=== PATIENT | male | born 1960 | race Caucasian/White ===

== ENCOUNTER 2017-01-19 19:27 | Emergency (ER) | payer BC ==
[~2017-01-19] VITALS: Ht 177.8 cm; Wt 96.0 kg
[2017-01-19] MEDS ORDERED: FLUCONAZOLE100 MG PO (20:09)
[2017-01-19] MEDS ORDERED: BREO ELLIPTA I1 EACH IH (20:09)
[2017-01-19] MEDS ORDERED: ZOLPIDEM TART12.5 MG PO (20:09)
[2017-01-19] MEDS ORDERED: OXCARBAZEPINE600 MG PO (20:10)
[2017-01-19] MEDS ORDERED: DECADRON4 MG PO (20:10)
[2017-01-19] MEDS ORDERED: LEVETIRACETAM500 MG PO (20:10)
[2017-01-19] MEDS ORDERED: SERTRALINE HCL100 MG PO (20:10)
[2017-01-19] MEDS ORDERED: PROAIR HFA8.5 GM IH (20:11)
[2017-01-19 20:14] LABS: HEMATOCRIT 40.6 % (38.0-50.0); MCH 31.7 PG (29.0-34.0); MCHC 34.5 G/DL (30.0-36.0); MCV 92.1 FL (86-99); MEAN PLAT.VOLUME 8.5 uM^3 (9.0-12.4); PLATELET COUNT 202 K/uL (156-360); RBC DIS.WIDTH-CV 13.7 % (11.8-14.6); RBC DIS.WIDTH-SD 45.6 % (39-53); RED BLOOD COUNT 4.41 M/uL (4.00-5.50); WHITE BLOOD COUNT 12.1 K/uL (4.1-10.2)
[2017-01-19 20:24] LABS: CHLORIDE 97 mEq/L (99-109); POTASSIUM 4.6 mEq/L (3.7-5.4); SODIUM 132 mEq/L (136-147)
[2017-01-19 20:26] LABS: GLUCOSE 124 mg/dL (70-99)
[2017-01-19 20:28] LABS: ANION GAP 12 MEQ/L (2-14)
[2017-01-19 20:30] LABS: GFR ESTIMATE (CALCULATED) > 59 mL/min/
[2017-01-19 20:31] LABS: UREA NITROGEN (BUN) 17 mg/dL (9-23)
[2017-01-19 20:37] LABS: TROP-I INTERPRETATION NEGATIVE; TROPONIN-I < 0.01 ng/mL (0.0-0.30)
[2017-01-19 21:17] VITALS: BP 135/99
== END 2017-01-19 21:27 | disposition home or self-care (01) ==
LOC: EME → EDBD 19:27 → EME 19:27
PROVIDERS: Emergency Medicine
DX: R42 Dizziness and giddiness (principal); T48.6X5A Adverse effect of antiasthmatics, initial encounter; K21.9 Gastro-esophageal reflux disease without esophagitis; R56.9 Unspecified convulsions
CPT/HCPCS: 71010; 80048; 84484; 85027; 93005; 99281; 99285; J7030

== ENCOUNTER 2017-01-25 00:02 | Emergency (ER) | payer BC ==
[~2017-01-25] VITALS: Ht 177.8 cm; Wt 85.2 kg
[~2017-01-25 00:02] MED LIST: BREO ELLIPTA I1 EACH IH; DECADRON4 MG PO; FLUCONAZOLE100 MG PO; LEVETIRACETAM500 MG PO; OXCARBAZEPINE600 MG PO; PROAIR HFA8.5 GM IH; SERTRALINE HCL100 MG PO; ZOLPIDEM TART12.5 MG PO
[2017-01-25 01:24] LABS: HEMATOCRIT 42.3 % (38.0-50.0); MCHC 34.5 G/DL (30.0-36.0); MCV 92.8 FL (86-99); PLATELET COUNT 237 K/uL (156-360); RBC DIS.WIDTH-CV 14.1 % (11.8-14.6); RBC DIS.WIDTH-SD 47.5 % (39-53); RED BLOOD COUNT 4.56 M/uL (4.00-5.50); WHITE BLOOD COUNT 12.7 K/uL (4.1-10.2)
[2017-01-25 01:29] LABS: ADD MIUA? NO; BILIRUBIN NEGATIVE; BLOOD NEGATIVE; COLOR YELLOW ((YELLOW)); GLUCOSE (STRIP) NEGATIVE; KETONES NEGATIVE; LEUKOCYTES NEGATIVE; NITRITE NEGATIVE; PROTEIN (STRIP) NEGATIVE; UCUL ADDED? NO; UROBILINOGEN 0.2 MG/DL (0.2-1.0)
[2017-01-25 01:35] LABS: CHLORIDE 99 mEq/L (99-109); POTASSIUM 4.2 mEq/L (3.7-5.4); SODIUM 133 mEq/L (136-147)
[2017-01-25 01:37] LABS: AMPHETAMINE NEGATIVE (500 ng/mL); COCAINE NEGATIVE (150 ng/mL); GLUCOSE 115 mg/dL (70-99); METHAMPHETAMINE NEGATIVE (500 ng/mL); OPIATES (MORPHINE) NEGATIVE (100 ng/mL); PHENCYCLIDINE NEGATIVE (25 ng/mL); THC CANNABINOIDS NEGATIVE (50 ng/mL)
[2017-01-25 01:38] LABS: ADD MEDTOX COMMENT Y; ANION GAP 11 MEQ/L (2-14); BARBITURATES PRESUMPTIVE POSITIVE (200 ng/mL); BENZODIAZEPINES PRESUMPTIVE POSITIVE (150 ng/mL); INTERNAL CONTROLS VALID? YES; METHADONE NEGATIVE (200 ng/mL); OXYCODONE NEGATIVE (100 ng/mL); PROPOXYPHENE NEGATIVE (300 ng/mL); TRICYCLIC ANTIDEPRESSANTS NEGATIVE (300 ng/mL)
[2017-01-25 01:40] LABS: SERUM ETHYL ALCOHOL 338 mg/dL
[2017-01-25 01:41] LABS: GFR ESTIMATE (CALCULATED) > 59 mL/min/
[2017-01-25 01:43] LABS: UREA NITROGEN (BUN) 11 mg/dL (9-23)
[2017-01-25 01:44] LABS: SALICYLATE < 5.0 MG/DL (15-30)
[2017-01-25 04:02] LABS: BENZODIAZEPINES, URINE SCREEN POSITIVE (200 ng/mL)
[2017-01-25 04:34] VITALS: BP 124/86
[2017-01-26] MEDS ORDERED: KEPPRA1000 MG PO (19:00)
== END 2017-01-25 04:39 | disposition home or self-care (01) ==
LOC: EME → EDBD 00:02 → EME 04:39
PROVIDERS: Emergency Medicine
DX: F10.129 Alcohol abuse with intoxication, unspecified (principal); S06.0X0A Concussion without loss of consciousness, initial encounter; S00.01XA Abrasion of scalp, initial encounter; F60.9 Personality disorder, unspecified; Y90.8 Blood alcohol level of 240 mg/100 ml or more; W18.30XA Fall on same level, unspecified, initial encounter; Y92.511 Restaurant or cafe as the place of occurrence of the external cause; G40.909 Epilepsy, unspecified, not intractable, without status epilepticus
CPT/HCPCS: 70450; 71010; 80048; 81003; 84999; 85027; 94640; 99281; 99284; G0480; J2060

== ENCOUNTER 2017-01-25 19:15 | Emergency (ER) | payer BC ==
[~2017-01-25] VITALS: Ht 177.8 cm; Wt 97.9 kg
[2017-01-25 20:00] LABS: EOSINOPHIL (%) 0.9 % (0-5); EOSINOPHIL COUNT 0.1 K/uL (0-0.3); HEMATOCRIT 37.8 % (38.0-50.0); IMMATURE GRANULOCYTE (%) 1.4 % (0.0-0.7); IMMATURE GRANULOCYTE COUNT 0.1 K/uL; INSTRUMENT ABS NEUTROPHIL CT 4.4 K/uL; LYMPHOCYTE COUNT 3.4 K/uL (1.0-2.8); MCH 32.4 PG (29.0-34.0); MCHC 34.7 G/DL (30.0-36.0); MCV 93.6 FL (86-99); MEAN PLAT.VOLUME 8.5 uM^3 (9.0-12.4); MONOCYTE (%) 12.5 % (3-12); MONOCYTE COUNT 1.1 K/uL (0-0.8); NEUTROPHIL (%) 47.7 % (45-76); NEUTROPHIL COUNT 4.4 K/uL (1.8-6.4); PLATELET COUNT 175 K/uL (156-360); RBC DIS.WIDTH-CV 14.2 % (11.8-14.6); RED BLOOD COUNT 4.04 M/uL (4.00-5.50); WHITE BLOOD COUNT 9.1 K/uL (4.1-10.2)
[2017-01-25 20:08] LABS: CHLORIDE 106 mEq/L (99-109); POTASSIUM 3.5 mEq/L (3.7-5.4)
[2017-01-25 20:09] LABS: SODIUM 143 mEq/L (136-147)
[2017-01-25 20:10] LABS: GLUCOSE 116 mg/dL (70-99)
[2017-01-25 20:11] LABS: ANION GAP 11 MEQ/L (2-14)
[2017-01-25 20:13] LABS: SERUM ETHYL ALCOHOL 372 mg/dL
[2017-01-25 20:14] LABS: GFR ESTIMATE (CALCULATED) > 59 mL/min/
[2017-01-25 20:16] LABS: UREA NITROGEN (BUN) 22 mg/dL (9-23)
[2017-01-25 20:17] LABS: SALICYLATE < 5.0 MG/DL (15-30)
[2017-01-26 00:40] LABS: AMPHETAMINE NEGATIVE (500 ng/mL); BARBITURATES PRESUMPTIVE POSITIVE (200 ng/mL); BENZODIAZEPINES PRESUMPTIVE POSITIVE (150 ng/mL); COCAINE NEGATIVE (150 ng/mL); INTERNAL CONTROLS VALID? YES; METHADONE NEGATIVE (200 ng/mL); METHAMPHETAMINE NEGATIVE (500 ng/mL); OPIATES (MORPHINE) NEGATIVE (100 ng/mL); OXYCODONE NEGATIVE (100 ng/mL); PHENCYCLIDINE NEGATIVE (25 ng/mL); PROPOXYPHENE NEGATIVE (300 ng/mL); THC CANNABINOIDS NEGATIVE (50 ng/mL); TRICYCLIC ANTIDEPRESSANTS NEGATIVE (300 ng/mL)
[2017-01-26 00:41] LABS: ADD MEDTOX COMMENT Y
[2017-01-26 01:35] LABS: BENZODIAZEPINES, URINE SCREEN POSITIVE (200 ng/mL)
[2017-01-26 09:04] VITALS: BP 135/94
[2017-01-26] MEDS ORDERED: KEPPRA1000 MG PO (19:00)
== END 2017-01-26 08:20 | disposition home or self-care (01) ==
LOC: EME 19:15
PROVIDERS: Emergency Medicine
DX: F10.120 Alcohol abuse with intoxication, uncomplicated (principal); F32.9 Major depressive disorder, single episode, unspecified
CPT/HCPCS: 80048 91; 84999; 85025; 90837; 99281; 99285; G0480; J7030

== ENCOUNTER 2017-01-26 13:04 | Emergency (ER) | payer BC ==
[~2017-01-26] VITALS: Ht 177.8 cm; Wt 90.0 kg
[2017-01-26 14:25] LABS: HEMATOCRIT 38.5 % (38.0-50.0); MCH 32.4 PG (29.0-34.0); MCHC 34.3 G/DL (30.0-36.0); MCV 94.6 FL (86-99); MEAN PLAT.VOLUME 8.2 uM^3 (9.0-12.4); PLATELET COUNT 171 K/uL (156-360); RBC DIS.WIDTH-SD 48.5 % (39-53); RED BLOOD COUNT 4.07 M/uL (4.00-5.50); WHITE BLOOD COUNT 9.4 K/uL (4.1-10.2)
[2017-01-26 14:36] LABS: CHLORIDE 106 mEq/L (99-109); POTASSIUM 3.4 mEq/L (3.7-5.4); SODIUM 141 mEq/L (136-147)
[2017-01-26 14:38] LABS: GLUCOSE 96 mg/dL (70-99)
[2017-01-26 14:39] LABS: ANION GAP 13 MEQ/L (2-14)
[2017-01-26 14:40] LABS: TOTAL BILIRUBIN 0.5 mg/dL (0.0-1.0)
[2017-01-26 14:41] LABS: ALKALINE PHOSPHATASE 61 IU/L (3-129); SERUM ETHYL ALCOHOL < 10 mg/dL
[2017-01-26 14:42] LABS: GFR ESTIMATE (CALCULATED) > 59 mL/min/
[2017-01-26 14:43] LABS: UREA NITROGEN (BUN) 15 mg/dL (9-23)
[2017-01-26 14:45] LABS: CREATINE KINASE 709 IU/L (1-294)
[2017-01-26 14:46] LABS: TROP-I INTERPRETATION NEGATIVE; TROPONIN-I < 0.01 ng/mL (0.0-0.30)
[2017-01-26 17:15] LABS: ADD MIUA? NO; BILIRUBIN NEGATIVE; BLOOD NEGATIVE; COLOR YELLOW ((YELLOW)); GLUCOSE (STRIP) NEGATIVE; KETONES NEGATIVE; LEUKOCYTES NEGATIVE; NITRITE NEGATIVE; PROTEIN (STRIP) 30; SPECIFIC GRAVITY 1.013 (1.000-1.030); UCUL ADDED? NO; UROBILINOGEN 0.2 MG/DL (0.2-1.0)
[2017-01-26 17:26] LABS: AMPHETAMINE NEGATIVE (500 ng/mL); BENZODIAZEPINES PRESUMPTIVE POSITIVE (150 ng/mL); COCAINE NEGATIVE (150 ng/mL); METHAMPHETAMINE NEGATIVE (500 ng/mL); OPIATES (MORPHINE) NEGATIVE (100 ng/mL); PHENCYCLIDINE NEGATIVE (25 ng/mL); THC CANNABINOIDS NEGATIVE (50 ng/mL)
[2017-01-26 17:27] LABS: ADD MEDTOX COMMENT Y; BARBITURATES PRESUMPTIVE POSITIVE (200 ng/mL); INTERNAL CONTROLS VALID? YES; METHADONE NEGATIVE (200 ng/mL); OXYCODONE NEGATIVE (100 ng/mL); PROPOXYPHENE NEGATIVE (300 ng/mL); TRICYCLIC ANTIDEPRESSANTS NEGATIVE (300 ng/mL)
[2017-01-26 17:54] LABS: BENZODIAZEPINES, URINE SCREEN POSITIVE (200 ng/mL)
[2017-01-26] MEDS ORDERED: KEPPRA1000 MG PO (19:00)
[2017-01-26 22:16] VITALS: BP 123/78
== END 2017-01-26 22:26 | disposition home or self-care (01) ==
LOC: EME 13:04
PROVIDERS: Emergency Medicine
DX: G40.909 Epilepsy, unspecified, not intractable, without status epilepticus (principal); S02.2XXA Fracture of nasal bones, initial encounter for closed fracture; W19.XXXA Unspecified fall, initial encounter; J45.909 Unspecified asthma, uncomplicated; K21.9 Gastro-esophageal reflux disease without esophagitis
CPT/HCPCS: 70450; 70486; 71010; 80053; 81003; 82550; 84484; 84999; 85027; 93005; 99281; 99285; G0480; J1953; J2060; J7030; J7050

== ENCOUNTER 2017-02-26 16:18 | Inpatient (IN) | payer BC ==
[~2017-02-26] VITALS: Ht 177.8 cm; Wt 98.3 kg
[~2017-02-26 16:18] MED LIST changes: +KEPPRA1000 MG PO
[2017-02-26 17:21] LABS: HEMATOCRIT 33.3 % (38.0-50.0); MCH 31.9 PG (29.0-34.0); MCHC 35.7 G/DL (30.0-36.0); MCV 89.3 FL (86-99); MEAN PLAT.VOLUME 9.2 uM^3 (9.0-12.4); PLATELET COUNT 206 K/uL (156-360); RBC DIS.WIDTH-CV 12.8 % (11.8-14.6); RBC DIS.WIDTH-SD 41.7 % (39-53); RED BLOOD COUNT 3.73 M/uL (4.00-5.50); WHITE BLOOD COUNT 13.4 K/uL (4.1-10.2)
[2017-02-26 17:29] LABS: CHLORIDE 96 mEq/L (99-109); POTASSIUM 3.9 mEq/L (3.7-5.4); SODIUM 129 mEq/L (136-147)
[2017-02-26 17:31] LABS: GLUCOSE 101 mg/dL (70-99)
[2017-02-26 17:32] LABS: ANION GAP 12 MEQ/L (2-14)
[2017-02-26 17:35] LABS: GFR ESTIMATE (CALCULATED) > 59 mL/min/
[2017-02-26 17:36] LABS: UREA NITROGEN (BUN) 8 mg/dL (9-23)
[2017-02-26 17:42] LABS: TROP-I INTERPRETATION NEGATIVE; TROPONIN-I < 0.01 ng/mL (0.0-0.30)
[2017-02-26] MEDS ORDERED: HYDROXYZINE PAM50 MG PO (17:42)
[2017-02-26] MEDS ORDERED: FLONASE16 G1 BOTH NARES (17:42)
[2017-02-26] MEDS ORDERED: QUETIAPINE FUMA50 MG PO (17:42)
[2017-02-26] MEDS ORDERED: TRAZODONE HCL50 MG PO (17:42)
[2017-02-26] MEDS ORDERED: KEPPRA1000 MG PO (19:50)
[2017-02-26] MEDS ORDERED: PRILOSEC20 MG PO (19:51)
[2017-02-26] MEDS ORDERED: ADVIL200 MG PO (19:51)
[2017-02-26] MEDS ORDERED: CLARITIN,ALAVAR10 MG PO (19:52)
[2017-02-26] MEDS ORDERED: SALINE MIST45 ML BOTH NARES (19:52)
[2017-02-26 22:02] LABS: URIC ACID 2.5 mg/dL (3.1-9.2)
[2017-02-26 22:53] VITALS: BP 140/82
[2017-02-26 23:31] LABS: ADD MIUA? NO; BILIRUBIN NEGATIVE; BLOOD NEGATIVE; COLOR STRAW ((YELLOW)); GLUCOSE (STRIP) 50; KETONES NEGATIVE; LEUKOCYTES NEGATIVE; NITRITE NEGATIVE; PROTEIN (STRIP) NEGATIVE; SPECIFIC GRAVITY 1.003 (1.000-1.030); UROBILINOGEN 0.2 MG/DL (0.2-1.0)
[2017-02-27 04:15] VITALS: BP 162/75
[2017-02-27 06:38] LABS: EOSINOPHIL (%) 0 % (0-5); HEMATOCRIT 32.4 % (38.0-50.0); IMMATURE GRANULOCYTE (%) 2.4 % (0.0-0.7); IMMATURE GRANULOCYTE COUNT 0.3 K/uL; INSTRUMENT ABS NEUTROPHIL CT 8.5 K/uL; LYMPHOCYTE COUNT 1.3 K/uL (1.0-2.8); MCH 33.1 PG (29.0-34.0); MCHC 36.1 G/DL (30.0-36.0); MCV 91.8 FL (86-99); MEAN PLAT.VOLUME 9.9 uM^3 (9.0-12.4); MONOCYTE (%) 8.2 % (3-12); MONOCYTE COUNT 0.9 K/uL (0-0.8); NEUTROPHIL (%) 77.2 % (45-76); NEUTROPHIL COUNT 8.5 K/uL (1.8-6.4); PLATELET COUNT 209 K/uL (156-360); RBC DIS.WIDTH-CV 13.1 % (11.8-14.6); RED BLOOD COUNT 3.53 M/uL (4.00-5.50)
[2017-02-27 07:21] LABS: ANION GAP 10 MEQ/L (2-14); CHLORIDE 98 MEQ/L (99-109); GFR ESTIMATE (CALCULATED) > 59 mL/min/; GLUCOSE 108 mg/dL (70-99); SAMPLE HEMOLYSIS CHECK 0; SAMPLE ICTERIC CHECK 0; SAMPLE LIPEMIA CHECK 0; SODIUM 134 MEQ/L (136-147); UREA NITROGEN (BUN) 8 mg/dL (9-23)
[2017-02-27 07:48] LABS: INTERNAL CONTROL VALID? YES
[2017-02-27 08:37] VITALS: BP 135/81
[2017-02-27 12:00] VITALS: BP 137/88
[2017-02-27 16:17] VITALS: BP 142/89
[2017-02-27 18:56] VITALS: BP 153/93
[2017-02-27 22:42] VITALS: BP 130/70
[2017-02-28 03:47] VITALS: BP 146/80
[2017-02-28 06:55] LABS: HEMATOCRIT 30.8 % (38.0-50.0); MCH 32.4 PG (29.0-34.0); MCHC 35.4 G/DL (30.0-36.0); MCV 91.7 FL (86-99); MEAN PLAT.VOLUME 9.6 uM^3 (9.0-12.4); PLATELET COUNT 206 K/uL (156-360); RBC DIS.WIDTH-CV 13.2 % (11.8-14.6); RBC DIS.WIDTH-SD 44.4 % (39-53); RED BLOOD COUNT 3.36 M/uL (4.00-5.50); WHITE BLOOD COUNT 6.9 K/uL (4.1-10.2)
[2017-02-28 07:21] LABS: ANION GAP 10 MEQ/L (2-14); CHLORIDE 99 MEQ/L (99-109); GFR ESTIMATE (CALCULATED) > 59 mL/min/; GLUCOSE 84 mg/dL (70-99); POTASSIUM 3.8 MEQ/L (3.7-5.4); SAMPLE HEMOLYSIS CHECK 0; SAMPLE ICTERIC CHECK 0; SAMPLE LIPEMIA CHECK 0; SODIUM 135 MEQ/L (136-147); UREA NITROGEN (BUN) 8 mg/dL (9-23)
[2017-02-28 07:24] VITALS: BP 137/79
[2017-02-28 12:26] VITALS: BP 154/83
[2017-02-28 16:14] VITALS: BP 138/83
[2017-02-28 19:02] VITALS: BP 144/83
[2017-02-28 22:56] VITALS: BP 137/85
[2017-03-01 03:25] VITALS: BP 148/87
[2017-03-01 08:02] LABS: HEMATOCRIT 34.5 % (38.0-50.0); MCH 32.6 PG (29.0-34.0); MCHC 35.7 G/DL (30.0-36.0); MCV 91.5 FL (86-99); MEAN PLAT.VOLUME 9.2 uM^3 (9.0-12.4); PLATELET COUNT 255 K/uL (156-360); RBC DIS.WIDTH-CV 13.2 % (11.8-14.6); RBC DIS.WIDTH-SD 43.9 % (39-53); RED BLOOD COUNT 3.77 M/uL (4.00-5.50)
[2017-03-01 08:27] LABS: ANION GAP 11 MEQ/L (2-14); CHLORIDE 95 MEQ/L (99-109); GFR ESTIMATE (CALCULATED) > 59 mL/min/; GLUCOSE 83 mg/dL (70-99); POTASSIUM 4.1 MEQ/L (3.7-5.4); SAMPLE HEMOLYSIS CHECK 0; SAMPLE ICTERIC CHECK 0; SAMPLE LIPEMIA CHECK 0; SODIUM 132 MEQ/L (136-147); UREA NITROGEN (BUN) 8 mg/dL (9-23)
[2017-03-01 08:29] VITALS: BP 142/93
[2017-03-01] MEDS ORDERED: CEFDINIR300 MG PO (10:01)
[2017-03-01] MEDS ORDERED: ADVAIR HFA120 INHALA IH (10:01)
[2017-03-01] MEDS ORDERED: SPACE CHAMBER1 EACH MC (10:02)
[2017-03-01 10:54] VITALS: BP 151/93
== END 2017-03-01 12:31 | disposition home or self-care (01) | DRG 871 ==
LOC: EME 16:18 → EDOF 18:37 → 5EAST 18:37
PROVIDERS: Hospitalist; Internal Medicine
DX: A41.9 Sepsis, unspecified organism (principal); J18.9 Pneumonia, unspecified organism; E87.1 Hypo-osmolality and hyponatremia; F10.21 Alcohol dependence, in remission; F32.9 Major depressive disorder, single episode, unspecified; G40.909 Epilepsy, unspecified, not intractable, without status epilepticus; G47.33 Obstructive sleep apnea (adult) (pediatric); J40 Bronchitis, not specified as acute or chronic; J43.9 Emphysema, unspecified; J45.909 Unspecified asthma, uncomplicated; R09.02 Hypoxemia; K21.9 Gastro-esophageal reflux disease without esophagitis; Y95 Nosocomial condition; Z68.31 Body mass index [BMI] 31.0-31.9, adult; Z79.52 Long term (current) use of systemic steroids; Z79.899 Other long term (current) drug therapy; Z82.49 Family history of ischemic heart disease and other diseases of the circulatory system; Z87.891 Personal history of nicotine dependence; F41.9 Anxiety disorder, unspecified; J39.8 Other specified diseases of upper respiratory tract
CPT/HCPCS: 71020; 80048; 81003; 82436; 83605; 83930; 83935; 84133; 84300; 84443; 84484; 84550; 85025; 85027; 87040; 87070; 87205; 87449; 87801; 93005; 94640; 94640 76; 94660; 94799; 99202; 99281; 99285; J0456; J0696; J1650; J3370; J7030; J7050; J7512